=== PATIENT | male | born 1960 | race Caucasian/White ===

== ENCOUNTER 2025-01-26 12:13 | Emergency (ER) | payer OTHER, SELFPAY ==
[2025-01-26 12:51] VITALS: BP 155/84; PULSE 87; RESP 17; TEMP 36.6; O2SAT 97; BMI 33.3
--- NOTE | 2025-01-26 12:58 | DI.RAD.S_ITS ---
PROCEDURE: XR SHOULDER RT MIN 2V INDICATIONS: hematoma, check soft tissue as well as for clots TECHNIQUE: 3 views of the shoulder were acquired. COMPARISON: None. FINDINGS: Bones: No fractures or dislocations. No suspicious bony lesions. Visualized ribs appear intact. There are degenerative changes involving the acromioclavicular and glenohumeral joints. Coracoclavicular and acromioclavicular intervals are maintained. Soft tissues: No suspicious soft tissue calcifications. IMPRESSION: Degenerative changes of the acromioclavicular and glenohumeral joints. No acute fracture or dislocation. If there are persistent symptoms or clinical suspicion for pathology, then repeat radiographs or advanced imaging (CT or MRI) may be considered for further evaluation. Dictated by: Santos Flores M.D. on 01/26/2025 at 13:30 Approved by: Sanots Flores M.D. on 01/26/2025 at 13:31
--- NOTE | 2025-01-26 12:58 | DI.US.S_ITS ---
PROCEDURE: US PERIPH VENOUS UP EXTREM RT INDICATIONS: BRUISE/SWELLING SHOULDER ?HEMATOMA VS DVT. TECHNIQUE: Real-time imaging, as well as color and pulse Doppler interrogation, was performed of the upper extremity deep veins from the inferior neck to the antecubital fossa. COMPARISON: None. FINDINGS: The internal jugular vein, visualized portions of the subclavian vein, axillary, and brachial veins are free of intraluminal thrombus. Where physically possible, the veins are normally compressible. Color and pulse Doppler demonstrate normal intraluminal flow, with expected phasicity and pulsatility. Additional scanning of the cephalic and basilic veins of the superficial system demonstrates normal compressibility, without thrombus. Soft tissue edema can be seen within the area of clinical bruising. IMPRESSION: No findings of deep venous thrombosis can be seen. Dictated by: Bandar Lindquist M.D. on 01/26/2025 at 13:46 Approved by: Bandar Lindquist M.D. on 01/26/2025 at 13:47
--- NOTE | 2025-01-26 15:53 | ED.EXTPRO ---
HPI - Extremity Problem <Mónica Mead PA-C - Last Filed: 01/26/25 16:44> General Chief complaint: Extremity Problem,Nontraumatic Stated complaint: right arm redness and sore- no injury known Time Seen by Provider: 01/26/25 13:46 Source: patient Mode of arrival: Ambulatory History of Present Illness HPI Narrative: Mr. Mariano is a very pleasant 64-year-old male with a past medical history of hyperthyroidism who presents to the emergency department for right upper arm pain and bruising x 3 days. He is here with his spouse. Patient states he woke up Friday and his right upper arm was feeling sore and he thought maybe he slept on it wrong. 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 Yesterday he noticed that the arm was swollen and bruised. His biceps felt very firm yesterday but states that today it actually is feeling a bit softer. He did go to work yesterday and was using the upper arm and he believes that this improved pain. He denies any fevers, chills, chest pain, shortness of breath, history of VTE, direct trauma to the upper arm. Pain is primarily in the right humerus region but he does have exacerbation of pain with range of motion of the shoulder. No decreased strength with flexion-extension of the elbow. No other injuries. No medications prior to arrival. Related Data Previous Rx's ?Medication ?Instructions ?Recorded cephalexin 500 mg capsule 500 mg PO TID 7 days #21 caps 01/26/25 Allergies Allergy/AdvReac Type Severity Reaction Status Date / Time No Known Drug Allergies Allergy Verified 01/26/25 12:51 Review of Systems <Mónica Mead PA-C - Last Filed: 01/26/25 16:44> Review of Systems ROS Unobtainable: All systems reviewed & are unremarkable except as noted in HPI and below Patient History <Mónica Mead PA-C - Last Filed: 01/26/25 16:44> Social History Smoking Status: Current every day smoker Smoking Status: Current every day smoker tobacco type: cigarettes Exam <Mónica Mead PA-C - Last Filed: 01/26/25 16:44> Narrative Exam Narrative: GENERAL: 64 year old patient appears stated age. Well-developed patient, in no acute distress. HEAD: Atraumatic. Normocephalic. EYES: No scleral icterus. No injection or drainage. NECK: Trachea midline. Cervical ROM intact. CARDIOVASCULAR: Regular rate RESPIRATORY: ?Nonlabored respirations. ?Speaking in clear, full sentences. ? EXTREMITIES: Edema and ecchymosis of right upper arm most prominent over the biceps muscle region. There is no biceps muscle deformity. Patient continues to have 5/5 bilateral elbow flexion and extension strength. No focal bony tenderness of the right shoulder, right elbow, right forearm. Strong radial pulses bilaterally and sensation and strength intact in the distribution of the median, ulnar, radial nerves bilaterally. NEURO: AOx3. ?Clear speech. ?Moves all 4 extremities appropriately. SKIN: No rashes. Right upper arm ecchymosis described above. There is some mild overlying erythema on the right triceps muscle region Initial Vital Signs Initial Vital Signs: Vital Signs Temperature 98 F 01/26/25 12:51 Pulse Rate 87 01/26/25 12:51 Respiratory Rate 17 01/26/25 12:51 Blood Pressure 155/84 H 01/26/25 12:51 Pulse Oximetry 97 01/26/25 12:51 Oxygen Delivery Method Room Air 01/26/25 12:51 <Rakan Haines MD - Last Filed: 01/27/25 07:45> Initial Vital Signs Initial Vital Signs: Vital Signs Temperature 98 F 01/26/25 12:51 Pulse Rate 87 01/26/25 12:51 Respiratory Rate 17 01/26/25 12:51 Blood Pressure 155/84 H 01/26/25 12:51 Pulse Oximetry 97 01/26/25 12:51 Oxygen Delivery Method Room Air 01/26/25 12:51 Course <Mónica Mead PA-C - Last Filed: 01/26/25 16:44> Orders Ordered: Discontinued Medications Acetaminophen (Acetaminophen 325 Mg Tablet) 650 mg PO NOW ONE Stop: 01/26/25 15:42 Last Admin: 01/26/25 16:25 Dose: 650 mg Documented By: SB Cephalexin HCl (Cephalexin 250 Mg Capsule) 500 mg PO NOW ONE Stop: 01/26/25 15:42 Last Admin: 01/26/25 16:26 Dose: 500 mg Documented By: SB Ibuprofen (Ibuprofen 400 Mg Tablet) 400 mg PO NOW ONE Stop: 01/26/25 15:42 Last Admin: 01/26/25 16:26 Dose: 400 mg Documented By: SB Vital Signs Vital signs: Vital Signs - 8 hr 01/26/25 12:51 Temperature 98 F Pulse Rate 87 Respiratory Rate 17 Blood Pressure 155/84 H Pulse Oximetry 97 Oxygen Delivery Method Room Air <Rakan Haines MD - Last Filed: 01/27/25 07:45> Orders Ordered: Discontinued Medications Acetaminophen (Acetaminophen 325 Mg Tablet) 650 mg PO NOW ONE Stop: 01/26/25 15:42 Last Admin: 01/26/25 16:25 Dose: 650 mg Documented By: SB Cephalexin HCl (Cephalexin 250 Mg Capsule) 500 mg PO NOW ONE Stop: 01/26/25 15:42 Last Admin: 01/26/25 16:26 Dose: 500 mg Documented By: SB Ibuprofen (Ibuprofen 400 Mg Tablet) 400 mg PO NOW ONE Stop: 01/26/25 15:42 Last Admin: 01/26/25 16:26 Dose: 400 mg Documented By: SB Vital Signs Vital signs: Vital Signs - 8 hr 01/26/25 12:51 Temperature 98 F Pulse Rate 87 Respiratory Rate 17 Blood Pressure 155/84 H Pulse Oximetry 97 Oxygen Delivery Method Room Air MDM - Extremity (Nontraumatic) <Mónica Mead PA-C - Last Filed: 01/26/25 16:44> Imaging Data Right UE Venous US: Radiologist's Impression: PROCEDURE: US PERIPH VENOUS UP EXTREM RT INDICATIONS: BRUISE/SWELLING SHOULDER ?HEMATOMA VS DVT. TECHNIQUE: Real-time imaging, as well as color and pulse Doppler interrogation, was performed of the upper extremity deep veins from the inferior neck to the antecubital fossa. COMPARISON: None. FINDINGS: The internal jugular vein, visualized portions of the subclavian vein, axillary, and brachial veins are free of intraluminal thrombus. Where physically possible, the veins are normally compressible. Color and pulse Doppler demonstrate normal intraluminal flow, with expected phasicity and pulsatility. Additional scanning of the cephalic and basilic veins of the superficial system demonstrates normal compressibility, without thrombus. Soft tissue edema can be seen within the area of clinical bruising. IMPRESSION: No findings of deep venous thrombosis can be seen. Dictated by: Bandar Lindquist M.D. on 01/26/2025 at 13:46 Approved by: Bandar Lindquist M.D. on 01/26/2025 at 13:47 R Shoulder XR: Radiologist's Impression: PROCEDURE: XR SHOULDER RT MIN 2V INDICATIONS: hematoma, check soft tissue as well as for clots TECHNIQUE: 3 views of the shoulder were acquired. COMPARISON: None. FINDINGS: Bones: No fractures or dislocations. No suspicious bony lesions. Visualized ribs appear intact. There are degenerative changes involving the acromioclavicular and glenohumeral joints. Coracoclavicular and acromioclavicular intervals are maintained. Soft tissues: No suspicious soft tissue calcifications. IMPRESSION: Degenerative changes of the acromioclavicular and glenohumeral joints. No acute fracture or dislocation. If there are persistent symptoms or clinical suspicion for pathology, then repeat radiographs or advanced imaging (CT or MRI) may be considered for further evaluation. Dictated by: Santos Flores M.D. on 01/26/2025 at 13:30 Approved by: Santos Flores M.D. on 01/26/2025 at 13:31 MDM Narrative Medical decision making narrative: 64-year-old male with a past medical history of hyperthyroidism who presents to the emergency department for right upper arm pain and bruising x 3 days. Differential diagnosis includes but not limited to biceps tendon rupture, biceps muscle strain/sprain/tear, rotator cuff injury, fracture, dislocation, hematoma, cellulitis, DVT, etc. On exam patient is in no acute distress, nontoxic appearing, vital signs appropriate. He is significant edema and ecchymoses of the right upper arm specifically overlying the biceps muscle area. Mild erythema overlying the triceps muscle area. X-ray right shoulder and vascular right upper extremity ultrasound ordered in triage. Right shoulder x-ray reveals degenerative changes no acute fracture or dislocation. Right upper extremity ultrasound reveals no findings of DVT, there is soft tissue edema overlying the area of clinical bruising. Patient's history and physical exam are consistent with a right upper arm hematoma at this time, likely due to a biceps muscle tear or strain. He is also having some mild erythema in the back of the arm and after shared decision-making with the patient we will treat with Keflex t.i.d. x7 days for potential early or developing cellulitis. An Isaias wrap was applied for compression, patient was provided with a sling as well for comfort recommended rice therapy, also alternating heat therapy, ibuprofen and Tylenol for pain, follow up with PCP and potentially orthopedics if he has persistent pain. Discussed strict ED return precautions with the patient his spouse. They verbalized understanding of all information agreeable to the plan, 1st dose of antibiotics given in the ED in addition to pain medication. He is stable for discharge home. All questions answered. Discharge Plan Departure Patient Disposition: Home Clinical Impression: Hematoma of right upper extremity Biceps strain Qualifiers: Encounter type: initial encounter Laterality: right Qualified Code(s): S46.211A - Strain of muscle, fascia and tendon of other parts of biceps, right arm, initial encounter Instructions: DI for Hematoma (Bruise) Activity Restrictions/Additional Instructions: Dear Mr. Mariano, Thank you for coming to the emergency department. Today you had an ultrasound of your right arm and an x-ray of your right shoulder. Ultrasound showed no blood clot. X-ray showed no broken bone. You do have a significant amount of swelling in the right upper arm and arthritis of the right shoulder. At this time I am concerned your symptoms are due to a partial tear or strain of the right biceps muscle. I would like you to rest, use ibuprofen and Tylenol for pain, compression, and also complete the full course of antibiotics for potential early cellulitis/skin infection. Please use RICE therapy for your pain in addition to ibuprofen/acetaminophen. Rest the painful area. Ice the area of pain/swelling for at least 15 minutes, 4x a day. Compress the area of swelling using a brace, wrap, or splint if applied. Elevate the painful or swollen extremity by supporting it above the level of the heart with pillows when sitting or laying. Please follow up with your primary care doctor within the next 2-3 days for ER follow-up. (If you do not have a PCP you can call [phone]. ?to schedule an appointment with an [facility] Primary Care Provider) IF YOU DEVELOP ANY NEW OR WORSENING SYMPTOMS, RETURN TO THE ER! Please read the attached instructions, they highlight more specific treatments and interventions for you at home. Thank you for letting me participate in your care, Mónica Mead PA-C Prescriptions: New cephalexin 500 mg capsule 500 mg PO TID 7 Days Qty: 21 0RF Stand Alone Forms: Patient Portal/API, Work Release Note ED Sign-out <Rakan Haines MD - Last Filed: 01/27/25 07:45> Cosign ED Attending Cosignature Attestation: I was immediately available in the department for consultation. ?This documentation has been reviewed and I agree with assessment and plan. Supervised by Rakan Haines MD
[2025-01-26] MEDS: ACETAMINOPHEN 325 MG TABLET 650 MG PO (16:25)
[2025-01-26] MEDS: IBUPROFEN 400 MG TABLET PO (16:26)
[2025-01-26 16:30] VITALS: BP 164/82; PULSE 90; RESP 16; O2SAT 95
== END 2025-01-26 16:30 | disposition home or self-care (01) ==
PROVIDERS: Emergency Provider Physician Assistant
DX: S46.211A Strain of muscle, fascia and tendon of other parts of biceps, right arm, initial encounter (principal); S40.021A Contusion of right upper arm, initial encounter
CPT/HCPCS: 73030; 93971; 99283